=== PATIENT | male | born 1950 | race Caucasian/White ===

== ENCOUNTER 2021-04-06 06:45 | Emergency (ER) | payer MEDICARE, OTHER ==
[~2021-04-06] VITALS: Ht 188 cm; Wt 131.5 kg
[~2021-04-06 06:45] MED LIST: FURO-81 PO; HYDR25TA9 PO; LOSA100T14 PO; OMEP20CA PO; POTA-148 PO
[2021-04-06 07:02] VITALS: BP 168/97
--- NOTE | 2021-04-06 07:06 | NUR ---
ARRIVAL PATIENT ARRIVED TO ED4 AMBULATORY WITH FAMILY, C/O HIGH BLOOD PRESSURE TODAY, PATIENT STATES WHEN HE GOT UP THIS MORNING HIS BLOOD PRESSURE WAS HIGH, WENT AHEAD AND TOOK HIS BLOOD PRESSURE MEDICATIONS, AFTER ONE HOUR HE TOOK IT AGAIN AND IT REMAINED HIGH, DECIDED TO COME TO THE ED FOR EVAL, VITAL SIGNS OBTAINED AND DOCTOR DAINA NOTIFIED OF PATIENT'S ARRIVAL.
[2021-04-06 07:35] VITALS: BP 145/90
--- NOTE | 2021-04-06 07:38 | ER.PDOC ---
General Chief Complaint: General Complaint Stated Complaint: ELEVATED BLOOD PRESSURE TRAVEL OUT OF US: No Time seen by MD: 07:34 Source: patient Exam Limitations: no limitations History of Present Illness Initial Comments Elevated blood pressure at home this morning. Patient took his medication prior to coming to the ED. No chest pain or shortness of breath. Severity: moderate Associated Symptoms: denies symptoms Allergies: Coded Allergies: No Known Allergies (Unverified , 08/20/13) Home Meds Reported Medications Potassium Chloride (POTASSIUM CHLORIDE) 20 Meq Tab.er.prt, 20 MEQ PO BID 11/25/13 Furosemide (LASIX) 20 Mg Tablet, 20 MG PO DAILY, TABLET 11/25/13 Omeprazole (PRILOSEC) 20 Mg Capsule.dr, 20 MG PO DAILY 08/20/13 Hydrochlorothiazide (HYDROCHLOROTHIAZIDE) 25 Mg Tablet, 25 MG PO DAILY, TABLET 08/20/13 Losartan Potassium (LOSARTAN POTASSIUM) 100 Mg Tablet, 100 MG PO DAILY PRN for HYPERTENSION, TABLET 08/20/13 Past Medical History Medical History: GERD, hypertension Surgical History: other Family History Significant Family History: no pertinent family hx Social History Smoking: non-smoker Alcohol Use: none Drug Use: none Review of Systems Constitutional: no symptoms reported EENTM: no symptoms reported Respiratory: no symptoms reported Cardiovascular: see HPI Gastrointestinal: no symptoms reported All Other Systems: Reviewed and Negative Physical Exam General Appearance: No Apparent Distress, WD/WN Neck: Non-Tender, Full Range of Motion, Supple, Normal Inspection Respiratory: chest non-tender, lungs clear, normal breath sounds, no respiratory distress, no accessory muscle use CVS: reg rate & rhythm, no murmur, no gallop, pulses nml, nml capillary refill Gastrointestinal: Normal Bowel Sounds, No Organomegaly, No Pulsatile Mass, Non Tender Back: Normal Inspection, No CVA Tenderness Extremities: Normal Range of Motion, Non-Tender, Normal Inspection Neurologic/Psychiatric: 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 Patient remains symptomless and feels good to go home. ER DEPART Departure Time of Disposition: 07:37 Disposition: 01 HOME / SELF CARE / HOMELESS Impression: Primary Impression: Elevated blood pressure reading Condition: Improved Referrals: JEEVAN [facility] TOPOLOGY TEACHER (PCP) PRIMARY CARE PROVIDER Additional Instructions: Continue home medications F/U with your PCP in 2-3 days Return to ED if worsening or concerns Duration or Time Spent with Pa: 10 min TAYLOR LAMA MD Apr 06, 2021 07:38
== END 2021-04-06 07:39 | disposition home or self-care (01) ==
LOC: ER 06:45
DX: I10 Essential (primary) hypertension (principal); K21.9 Gastro-esophageal reflux disease without esophagitis; Z79.899 Other long term (current) drug therapy
CPT/HCPCS: 99281